=== PATIENT | female | born 1985 | race Hispanic/Latino ===

== ENCOUNTER 2016-08-03 14:27 | Emergency (ER) | payer OTHER ==
[~2016-08-03] VITALS: Ht 165.1 cm; Wt 131.8 kg
[~2016-08-03 14:27] MED LIST: HYDR-4003 PO; NPR500T PO; PENI500T PO
[2016-08-03 14:34] VITALS: BP 173/109; PULSE 105; RESP 18; O2SAT 99
--- NOTE | 2016-08-03 16:30 | ED.REPORT ---
HPI-Rash / Abscess Date of Service Aug 03, 2016 ED Provider: Norm Dumont MD Pt is a 31 y/o healthy female presenting to the ED due to bump on left buttock. Her bump has been present for quite some time but within the past day the pain and size of the bump has increased to the size of a golf ball. She denies fever , vomiting. Pt has no history of abscess. Nursing Notes Stated Complaint: LUMP ON LOWER LEFT SIDE OF BACK Chief Complaint: Skin Rash/Abscess Nursing Notes Reviewed: Yes Allergies: Coded Allergies: No Known Allergies (Unverified , 08/03/16) Scheduled Penicillin V Potassium (Penicillin V Potassium) 500 Mg Tablet 500 MG PO BID Scheduled PRN Hydrocodone-Acetaminophen 5-325 mg (Hydrocodone-Acetaminophen 5-325 mg) 1 Each Tablet 1 TABLET PO Q4H PRN PRN For Pain Hydrocodone-Acetaminophen 5-325 mg (Hydrocodone-Acetaminophen 5-325 mg) 1 Each Tablet 1 TABLET PO QID PRN PRN For Pain Ibuprofen (Ibuprofen) 800 Mg Tablet 800 MG PO TID PRN PRN For Pain Naproxen (Naproxen) 500 Mg Tab 500 MG PO BID PRN PRN For Pain General Time Seen by MD: 16:25 Chief Complaint Other (Bump) Hx Obtained From: Patient Arrived By: Walk-in Onset Occurred: 2 days ago Symptom Duration: Since onset Location: : Buttock Quality: Painful Severity: Current: Moderate Severity: Maximum: Moderate Similar Sx Previous: No Past Medical History Past Medical History Denies Reports: Obesity Past Surgical History None reported Smoking History Unknown if Ever Smoker Social History Alcohol Use: Denies alcohol use Drug Use: Denies drug use Other Social History: Lives with children Ambulatory Status Independent Review of Systems Constitutional: Denies: Chills, Fever GI: Denies: Nausea, Vomiting Skin: Reports Rash Complete sys rev & neg: except as marked. Physical Exam Initial Vital Signs Vital Signs (First) Date Time Temp Pulse Resp B/P Pulse Ox O2 Delivery O2 Flow Rate FiO2 08/03/16 14:34 37.4 105 18 173/109 99 Room Air Initial VS: Reviewed, Vital signs abnormal Head / Eyes: Atraumatic, Normocephalic, PERRL ENT: Mucous membranes moist, Conjunctiva normal, No scleral icterus Neck: Supple, Full range of motion Respiratory: Breath sounds normal, Clear to auscultation, No respiratory distress Cardiovascular: Regular rate & rhythm, Heart sounds normal, Intact distal pulses Abdomen / GI: Soft, Non-tender, No guarding, No rebound, No distention Extremities: Vascular intact, Neuro intact, No swelling, No tenderness Neurologic: Alert, Oriented, Nonfocal Psychiatric: Mood/affect normal, Behavior normal, Normal thought content General/Constitutional: Awake, Alert, No acute distress, Well appearing, Cooperative, Not toxic appearing Appearance / Presentation: Positive: Obese, morbidly Skin: Atraumatic, Color NL, Warm, Dry Rash / Lesion Notes: 4x5 cm firm mass palpated over left buttock. No warmth, fluctuance, or erythema Interpretation & Diagnostics Interpretation & Diagnostics: US left buttock: IMPRESSION: Hypoechoic lesion corresponds to the palpable mass in the left buttock. Lesion is nonspecific and may represent a fluid collection with internal debris versus a solid mass which lacks perceivable internal vascularity. Dictated by: Breana Zacarias MD, PhD on 08/03/2016 at 17:37 Approved by: Breana Zacarias MD, PhD on 08/03/2016 at 17:38 Lab Results Interpretation Result Diagram: 08/03/16 1648 Test 08/03/16 16:48 White Blood Count 7.1th/mm3 (3.8-10.1) Red Blood Count 4.92mil/mm3 (3.90-5.20) Hemoglobin 13.8g/dL (12.0-15.6) Hematocrit 41.0% (35.0-46.0) Mean Corpuscular Volume 83.3fL (81-100) Mean Corpuscular Hemoglobin 28.0pg (27.0-35.0) Mean Corpuscular Hemoglobin Concent 33.7% (32.0-37.0) Red Cell Distribution Width 15.1% (12.3-15.4) Platelet Count 282bil/L (150-400) Neutrophils (%) (Auto) 56.5% (40-74) Lymphocytes (%) (Auto) 33.6% (14-46) Monocytes (%) (Auto) 7.3% (4-12) Eosinophils (%) (Auto) 2.1% (0-5) Basophils (%) (Auto) 0.4% (0-3) C-Reactive Protein 0.8mg/dL (0.0-0.5) Hold Sanches Top Tube Received (Received) Procedures Incision & Drainage Abscess I & D Abscess: This was an aspiration procedue, not an I&D. This is the most applicable procedure note available. No pus in the aspirate Time: 18:23 Procedure Performed by: ED physician Consent / Setup / Site Prep: Consent from patient, Time-out performed, Hand hygiene observed, Stand sterile technique Location of Abscess: Left buttock Skin Preparation Agent: Hibiclens - Chlorhexidine Local Anesthesia: Lidocaine w epi 1% Post-Procedure / Complications: Dressing applied, No complications, Condition improved, Tolerated procedure well, Patient stable Re-Eval/Medical Decision Med Decision/Clinical Course 31-year-old female presenting complaining of left buttock mass has been present for many years though increasing in size and with pain last couple weeks per patient. No fevers or systemic symptoms or signs of infection. Vital signs stable. On exam with masses above no fluctuance no surrounding redness. It is mildly tender. Ultrasound was performed which showed hypoechoic mass unclear etiology. I did perform an aspiration and there was no purulent discharge or blood aspirated. Low suspicion developing abscess given no purulence and exam as above. Recommend she follow up primary doctor in 2 days for reevaluation. Return precautions given. Re-Evaluation/Progress : Time of Eval: 18:27 Patient Status: Condition improved, Pain improved Re-Evaluation/Progress Note: Pt rechecked. Informed pt of plan for treatment. Pt understands and agrees with plan for treatment. F/U instructions and RTER warnings given. All questions addressed. Counseled Regarding: Diagnosis, Lab results, Need for follow-up, When/why to return to ED Discharge & Departure Impression: Primary Impression: Mass Disposition: Home Discharge Condition All VS Reviewed: Yes Condition: Stable Patient Instructions: Lipoma (ED) Additional Instructions: There was no pus in the aspirate today. The cause or substance of this mass is unclear although it does not appear emergent at this time. This could be a lipoma. Your labs were normal. The markers for inflammation and infection were not increased. Take 800 mg Ibuprofen every 8 hours as needed for pain. I recommend outpatient treatment for this mass. Please follow-up with your primary care doctor later this week or next week for further evaluation. Return to the emergency department for high fever, vomiting, if a rash appears, increasing pain, or for other concerning symptoms. Referrals: [facility] Scribe Attestation Portions of this note were transcribed by Luis Alfredo Casper. I, Dr. Dumont personally performed the history, physical exam and medical decision-making; I reviewed and confirmed the accuracy of the information in the transcribed note. Signed by José Zaragoza, 08/03/16 - 1700 Norm Dumont MD Aug 03, 2016 16:30 LUIS ALFREDO CASPER Aug 03, 2016 16:37
[2016-08-03 16:56] LABS: BASOPHILS % (AUTO) 0.4 % (0-3); EOSINOPHILS % (AUTO) 2.1 % (0-5); MONOCYTES % (AUTO) 7.3 % (4-12); Mean Corpuscular Volume 83.3 fL (81-100); NEUTROPHILS % (AUTO) 56.5 % (40-74); Platelet Count 282 bil/L (150-400)
[2016-08-03 17:20] VITALS: BP 156/94; PULSE 102; RESP 18; O2SAT 98
[2016-08-03] MEDS ORDERED: Ketorolac 30 mg/mL 2 mL Inj IM ONE (17:20)
--- NOTE | 2016-08-03 17:40 | DRSVH ---
PROCEDURE: US EXTREMITY SONOGRAM LIMITED ([id number]) INDICATIONS: Left buttocks mass r/o abscess TECHNIQUE: Real-time scanning was performed of the left buttock, with image documentation. COMPARISON: None. FINDINGS: Hypoechoic lesion corresponds to the palpable lesion. The lesion measures 1.1 x 0.8 x 1.1 cm. No internal vascularity identified. IMPRESSION: Hypoechoic lesion corresponds to the palpable mass in the left buttock. Lesion is nonsp ecific and may represent a fluid collection with internal debris versus a solid mass which lacks perc eivable internal vascularity. Dictated by: Breana Zacarias MD, PhD on 08/03/2016 at 17:37 Approved by: Breana Zacarias MD, PhD on 08/03/2016 at 17:38
[2016-08-03] MEDS ORDERED: Lidocaine 1%-Epi 1:100,000 10 mL Inj SUBQ ONE (17:50)
[2016-08-03] MEDS ORDERED: IBUP800T28 PO (18:37)
[2016-08-03 18:45] VITALS: BP 156/94; PULSE 102; RESP 18; O2SAT 98
== END 2016-08-03 18:46 | disposition home or self-care (01) ==
LOC: SED 14:27
DX: R22.2 Localized swelling, mass and lump, trunk (principal); L02.31 Cutaneous abscess of buttock
CPT/HCPCS: 10160; 36415; 76882; 85025; 86140; 96372; 99285; J1885

== ENCOUNTER 2016-11-24 10:53 | Emergency (ER) | payer OTHER ==
[~2016-11-24] VITALS: Ht 165.1 cm; Wt 118.2 kg
[~2016-11-24 10:53] MED LIST changes: +IBUP800T28 PO
[2016-11-24 11:11] VITALS: BP 137/89; PULSE 86; RESP 16; O2SAT 96
--- NOTE | 2016-11-24 11:25 | ED.REPORT ---
HPI-Dental/Mouth Prob Date of Service Nov 24, 2016 ED Provider: History of Present Illness: 31yo female with L lower molar pain x 3 days. No fever or facial swelling. Pain inhibits seep, is sharp and non-radiating. Has dental appointment in 2 weeks. Has had previous dental pain issues last April, responded to ED therapy. Nursing Notes Stated Complaint: BOTTOM TOOTH HURTING Chief Complaint: Dental Nursing Notes Reviewed: Yes Allergies: Coded Allergies: No Known Allergies (Unverified , 11/24/16) Scheduled Penicillin V Potassium (Penicillin V Potassium) 500 Mg Tablet 500 MG PO TID Scheduled PRN Hydrocodone-Acetaminophen 5-325 mg (Hydrocodone-Acetaminophen 5-325 mg) 1 Each Tablet 1 TABLET PO QID PRN PRN For Pain General Time Seen by MD: 11:23 Chief Complaint Tooth pain Hx Obtained From: Patient Arrived By: Walk-in Onset Occurred: 3 days ago Symptom Duration: Waxes and wanes Location: : Tooth lower L molar Quality: Same as prior, Sharp Radiation: : Does not radiate Severity: Current: Moderate Severity: Maximum: Moderate Recent Healthcare: No recent doctor visit Similar Sx Previous: Yes Past Medical History Past Medical History Denies Reports: Obesity Past Surgical History None reported Smoking History Unknown if Ever Smoker Social History Alcohol Use: Denies alcohol use Drug Use: Denies drug use Other Social History: Lives with children Ambulatory Status Independent Review of Systems Constitutional: Denies: Chills, Fever Ears / Nose / Throat: Reports: Toothache, Denies: Sinus problem, Throat pain, Throat swelling Respiratory: Denies: Shortness of breath GI: Denies: Abdominal pain Complete sys rev & neg: except as marked. Physical Exam Initial Vital Signs Vital Signs (First) Date Time Temp Pulse Resp B/P Pulse Ox O2 Delivery O2 Flow Rate FiO2 11/24/16 11:11 35.9 86 16 137/89 96 Room Air Initial VS: Reviewed ENT: Airway patent, Pharynx NL, No trismus, Ext aud canal NL, Mastoid area NL, No sinus tenderness, No facial swelling, Gums/dentition NL Dental / Gums: Positive: Tender to percussion, Negative: Decay extensive, Decay single tooth, Dental impaction, Ginigivitis present, Gum bleeding present, Gum swelling, Gum ulcers present, Tooth fracture Neck: Supple, No adenopathy Respiratory / Chest: Breath sounds NL, Breath sounds = bilat, No respiratory distress Cardiovascular: Heart rate NL, Regular rhythm, Heart sounds NL Abdomen: Soft Re-Eval/Medical Decision Med Decision/Clinical Course Straightforward odentalgia, no worrisome features, will treat empirically with Pen VK and Yale along with home symptomatic measures. S/s for which to return to ED discussed. Pt. acknowledged understanding of plan. Counseled Regarding: Diagnosis, Need for follow-up, When/why to return to ED Discharge & Departure Primary Impression: Toothache Disposition: Home Discharge Condition Condition: Stable Patient Instructions: Dental Abscess (ED) Additional Instructions: Warm compresses, take meds as prescribed. Follow up with dentist as scheduled. Return to ER if anything worsens. Referrals: [facility] Provider for APC: Caroline Jacobs MD, Christopher R PAC Nov 24, 2016 11:25
[2016-11-24] MEDS ORDERED: HYDR-4003 PO (11:52)
[2016-11-24] MEDS ORDERED: PENI500T PO (11:52)
== END 2016-11-24 12:06 | disposition home or self-care (01) ==
LOC: SED 10:53
DX: K08.9 Disorder of teeth and supporting structures, unspecified (principal)